=== PATIENT | female | born 1985 ===

== ENCOUNTER 2020-02-04 10:41 | Emergency (ER) | payer OTHER ==
[~2020-02-04] VITALS: Ht 165.1 cm; Wt 63.5 kg
[2020-02-04] MEDS ORDERED: PRENATAL + DHA1 EAC1 (11:12)
== END 2020-02-04 14:55 | disposition home or self-care (01) ==
LOC: ER 10:41
DX: O26.891 Other specified pregnancy related conditions, first trimester (principal); S30.0XXA Contusion of lower back and pelvis, initial encounter; O36.80X1 Pregnancy with inconclusive fetal viability, fetus 1; V49.9XXA Car occupant (driver) (passenger) injured in unspecified traffic accident, initial encounter; Z3A.08 8 weeks gestation of pregnancy; Y93.89 Activity, other specified; Y92.488 Other paved roadways as the place of occurrence of the external cause; Y99.8 Other external cause status

== ENCOUNTER 2020-08-29 12:45 | Inpatient (IN) | payer OTHER ==
[~2020-08-29] VITALS: Ht 165.1 cm; Wt 78.9 kg
[~2020-08-29 12:45] MED LIST: PRENATAL + DHA1 EAC1
== END 2020-09-07 12:18 | disposition home or self-care (01) | DRG 807 ==
LOC: LDR 09-05 05:59 → SURG-SUITE 09-05 05:59 → OB/GYN 09-12 12:45
PROVIDERS: ADMIT Obstetrics & Gynecology Maternal & Fetal Medicine; ATTEND Obstetrics & Gynecology Maternal & Fetal Medicine
PROC: 10E0XZZ Delivery of Products of Conception, External Approach (ICD-10-PCS; principal; 2020-09-05)
PROC: 0KQM0ZZ Repair Perineum Muscle, Open Approach (ICD-10-PCS; 2020-09-05)
PROC: 4A1HXFZ Monitoring of Products of Conception, Cardiac Rhythm, External Approach (ICD-10-PCS; 2020-09-05)
DX: O70.1 Second degree perineal laceration during delivery (principal); Z37.0 Single live birth; Z3A.39 39 weeks gestation of pregnancy; Z20.822 Contact with and (suspected) exposure to COVID-19

== ENCOUNTER 2020-09-02 11:00 | Outpatient (CLI) | payer OTHER | END 2020-09-02 11:45 | disposition home or self-care (01) | LOC: NST 11:00 | PROVIDERS: ATTEND Obstetrics & Gynecology Maternal & Fetal Medicine | DX: Z34.83 Encounter for supervision of other normal pregnancy, third trimester (principal) ==